=== PATIENT | female | born 1985 | race Caucasian/White ===

== ENCOUNTER → 2018-04-27 | Outpatient (CLI) | payer OTHER ==
--- NOTE | 2018-04-27 10:52 | RAD ---
DATE: April 27, 2018 EXAM: DIGITAL DIAGNOSTIC BILATERAL, BREAST RIGHT SONOGRAPHY HISTORY: New palpable lump of the right breast for one month. COMPARISON: None. Baseline study. This study was interpreted with the benefit of Computerized Aided Detection (CAD). FINDINGS: Breast Density: HETERO The breast parenchyma is heterogenously dense, which could reduce sensitivity of mammography. Breast parenchyma level C.. 2-D digital mammography of both breasts were performed in the CC and MLO projections. Additional focal compression views of the right breast in the CC and MLO projections and a digital 90 degree mediolateral view of the right breast were performed. A marker was placed on the palpable lump of the lateral aspect of the right breast as indicated by the patient. No underlying focal mammographic abnormality is seen. There are no dominant suspicious masses, suspicious microcalcifications or evidence of architectural distortion. RIGHT BREAST SONOGRAPHY: High-resolution sonography of the palpable lump of the 10:00 position the right breast as indicated by the patient was performed. 4 cm from the nipple, a simple cyst is seen measuring 2.3 cm x 1.3 cm x 1.7 cm in size. No internal color Doppler flow is seen. IMPRESSION: Palpable lump of the right breast corresponds to a simple cyst. No mammographic indicators for malignancy. Patient will be due for a screening mammogram at age 39. BI-RADS CATEGORY: 2 BENIGN FINDING RECOMMENDED FOLLOW-UP: 12M 12 MONTH FOLLOW-UP PQRS compliance statement: Patient information was entered into a reminder system with a target due date April 28, 2024 for the next mammogram. Mammography is a sensitive method for finding small breast cancers, but it does not detect them all and is not a substitute for careful clinical examination. A negative mammogram does not negate a clinically suspicious finding and should not result in delay in biopsying a clinically suspicious abnormality. "Our facility is accredited by the [employer] Mammography Program." The patient's breast density may affect the ability of mammography to detect breast cancer. There are 4 categories of breast density, A, B, C and D. Breast density A means that most of the breast tissue is replaced with adipose tissue and therefore is not dense. Breast density B means that the breast tissue is mildly dense and scattered. Breast density C means that the breast tissue is heterogeneously dense. Breast density D means that the breast tissue is very dense. Breast densities especially C and D may decrease the sensitivity of mammography to detect breast cancer. Therefore, the patient may benefit from 3-D breast mammography (3D breast tomography) as a part of their screening mammogram. Insurance may or may not pay for this additional imaging. The patient's breast density based on today's mammogram is category C.
== END | disposition home or self-care (01) ==
LOC: MAMMO 15:44
PROVIDERS: ATTEND Family Medicine
DX: N60.01 Solitary cyst of right breast (principal)
CPT/HCPCS: 76641; 77066